=== PATIENT | male | born 1960 | race Two or more races ===

== ENCOUNTER 2019-02-21 21:05 | Inpatient (IN) | payer MEDICAID ==
[~2019-02-21] VITALS: Ht 165.1 cm; Wt 93.9 kg
--- NOTE | 2019-02-21 21:24 | NUR ---
TECH AT BEDSIDE FOR EKG
--- NOTE | 2019-02-21 21:26 | NUR ---
RADIOLOGY AT BEDSIDE FOR XRAY
[2019-02-21] MEDS ORDERED: IV NS 0.9% 1,000 ML BAG IV ONE (21:30)
[2019-02-21 21:43] LABS: BASOPHILS % (AUTO) 0.5 % (0.0-2.0); EOSINOPHILS % (AUTO) 0.7 % (0.0-6.0); HEMATOCRIT 43 % (39-51); HEMOGLOBIN 14.8 g/dL (13.5-17.5); LYMPHOCYTES # (AUTO) 1.6 /CMM (0.8-4.8); LYMPHOCYTES % (AUTO) 17.8 % (20.0-44.0); MEAN CORPUSCULAR HGB CONC 35 g/dl (31.0-36.0); MEAN CORPUSCULAR VOLUME 91 fL (80-96); MONOCYTES % (AUTO) 11.2 % (2.0-12.0); NEUTROPHILS # (AUTO) 6.2 /CMM (1.8-8.9); NEUTROPHILS % (AUTO) 69.8 % (43.0-81.0); PLATELET COUNT (AUTO) 218 /CMM (150-450); RED BLOOD CELL COUNT(AUTO) 4.66 MIL/uL (4.5-6.0); WHITE BLOOD COUNT (AUTO) 8.9 K/uL (4.3-11.0)
--- NOTE | 2019-02-21 21:44 | NUR ---
BLOOD DRAWN AND GIVEN TO LAB
[2019-02-21 21:54] LABS: CALCIUM, SERUM 8.9 mg/dL (8.5-10.1); CREATININE 0.9 mg/dL (0.6-1.3); POTASSIUM 4.2 mmol/L (3.5-5.1)
[2019-02-21 21:59] LABS: ALBUMIN 3.6 g/dL (3.4-5.0); BILIRUBIN,DIRECT 0.1 mg/dL (0.0-0.2); BILIRUBIN,TOTAL 0.7 mg/dL (0.2-1.0); TOTAL PROTEIN, SERUM 7.7 g/dL (6.4-8.2)
[2019-02-21] MEDS ORDERED: ACETAMINOPHEN 325 MG TABLET PO ONE (22:30)
--- NOTE | 2019-02-21 22:32 | NUR ---
URINE COLLECTED AND SENT TO LAB
[2019-02-21] MEDS ORDERED: ACETAMINOPHEN ES 500 MG TABLET ONE (22:34)
[2019-02-21 22:35] LABS: APPEARANCE,URINE Slightly Cloudy (CLEAR); BILIRUBIN,URINE SMALL (NEGATIVE); BLOOD, URINE Negative Ery/uL (NEGATIVE); COLOR,URINE Other (YELLOW); KETONES,URINE Trace (NEGATIVE); LEUKOCYTE ESTERASE ,URINE Trace (NEGATIVE); NITRITE, URINE Positive (NEGATIVE); PH,URINE 6.5 (5.0-8.0); PROTEIN,URINE 100 mg/dl (NEGATIVE); UGLUCOSE 100 MG/DL mg/dL (NEGATIVE)
[2019-02-21 23:03] LABS: OCCULT BLOOD STOOL POSITIVE (NEGATIVE)
[2019-02-21 23:04] LABS: BACTERIA,URINE Many /HPF (None Seen); RBC,URINE 0-2 /HPF (0-2); SQUAMOUS EPITHELIAL CELL,UR Rare /HPF (None Seen); WBC,URINE 21-50 /HPF (0-3)
[2019-02-21] MEDS ORDERED: ACETAMINOPHEN 325 MG TABLET PO PRN (23:30)
[2019-02-21] MEDS ORDERED: ONDANSETRON HCL/PF 4 MG/2 ML VIAL IVP PRN (23:30)
[2019-02-21] MEDS ORDERED: ZOLPIDEM TARTRATE 5 MG TABLET PO PRN (23:30)
[2019-02-21] MEDS ORDERED: HYDROCODONE/APAP 5/325MG 1 EACH TABLET PO PRN (23:30)
[2019-02-21] MEDS ORDERED: MAGNESIUM HYDROXIDE 30 ML UDC PO PRN (23:30)
[2019-02-21] MEDS ORDERED: Z GUARD REMEDY 2 OZ OINT TP PRN (23:30)
--- NOTE | 2019-02-22 00:11 | NUR ---
REPORT GIVEN TO CASANDRA MORA FOR SADIA
--- NOTE | 2019-02-22 00:30 | NUR ---
TEMP 99.2
[2019-02-22 00:45] VITALS: BP 127/82
--- NOTE | 2019-02-22 00:45 | NUR ---
RN OPEN NOTES RECEIVED PATIENT FROM ER VIA [facility] WITH FAMILY AT BEDSIDE. A/OX4. NO SIGNS OF DISTRESS OR DISCOMFORT. BREATHING EVEN AND UNLABORED. IV ACCESS IN L HAND, PATENT AND INTACT, NO SIGNS OF REDNESS OR INFILTRATION. ATTACHED PATIENT TO TELE MONITORING WITH SR 87 NOTED. NO SKIN ISSUES NOTED. BED IN LOW LOCKED POSITION WITH SIDE RAILS X2. CALL LIGHT WITHIN REACH. WILL CONTINUE TO MONITOR.
--- NOTE | 2019-02-22 01:25 | NUR ---
RN NOTES KESHIA AUTO TIRE RECAPPER AT PATIENT BEDSIDE.
[2019-02-22] MEDS ORDERED: CEFTRIAXONE 1 G VIAL ONE (01:50)
[2019-02-22] MEDS: IV NS 0.9% 1,000 ML IV PRN (01:50)
[2019-02-22] MEDS: CEFTRIAXONE 1 G in IV D5W 50 ML IV SCH ×2 (01:59→23:03)
[2019-02-22] MEDS ORDERED: BLOOD SUGAR DIAGNOSTIC 1 EACH STRIP IN SCH (02:00)
[2019-02-22] MEDS ORDERED: DEXTROSE 50%-WATER 50 ML DISP.SYRIN IV PRN (02:00)
[2019-02-22] MEDS ORDERED: LISINOPRIL (10MG) 10 MG TABLET PO SCH (02:00)
[2019-02-22 03:46] LABS: BASOPHILS % (AUTO) 0.3 % (0.0-2.0); EOSINOPHILS % (AUTO) 2.1 % (0.0-6.0); HEMATOCRIT 37 % (39-51); LYMPHOCYTES # (AUTO) 2.2 /CMM (0.8-4.8); LYMPHOCYTES % (AUTO) 28.5 % (20.0-44.0); MEAN CORPUSCULAR HGB CONC 35 g/dl (31.0-36.0); MEAN CORPUSCULAR VOLUME 91 fL (80-96); MONOCYTES # (AUTO) 1.2 /CMM (0.1-1.30); MONOCYTES % (AUTO) 15.1 % (2.0-12.0); NEUTROPHILS # (AUTO) 4.3 /CMM (1.8-8.9); PLATELET COUNT (AUTO) 175 /CMM (150-450); RED BLOOD CELL COUNT(AUTO) 4.08 MIL/uL (4.5-6.0); WHITE BLOOD COUNT (AUTO) 7.9 K/uL (4.3-11.0)
[2019-02-22 04:00] VITALS: BP 110/64
[2019-02-22 04:02] LABS: LYMPHOCYTES % (MANUAL) 22 % (16-48); MONOCYTES % (MANUAL) 13 % (0-11.0); NEUTROPHILS % (MANUAL) 63 (42-76)
[2019-02-22 04:07] LABS: CREATININE 0.9 mg/dL (0.6-1.3); MAGNESIUM 1.7 mg/dL (1.8-2.4); PHOSPHORUS 3.4 mg/dL (2.5-4.9); POTASSIUM 3.5 mmol/L (3.5-5.1)
[2019-02-22] MEDS: BLOOD SUGAR DIAGNOSTIC 1 EACH STRIP IN SCH ×4 (06:34→23:03)
[2019-02-22] MEDS: INSULIN REGULAR, HUMAN 100 UNIT/ML 3 ML VIAL SQ PRN ×4 (06:37→23:11)
--- NOTE | 2019-02-22 06:53 | NUR ---
RN CLOSING NOTES PATIENT RESTING IN BED, EASILY AROUSABLE. A/OX4. NO SIGNS OF DISTRESS OR DISCOMFORT. BREATHING EVEN AND UNLABORED. IV ACCESS IN L HAND WITH NS INFUSING, PATENT AND INTACT, NO SIGNS OF REDNESS OR INFILTRATION. ATTACHED TO TELE MONITORING WITH SR 78 NOTED. ALL NEEDS MET. NO SIGNIFICANT CHANGES THROUGH THE NIGHT. BED IN LOW LOCKED POSITION WITH SIDE RAILS X2. CALL LIGHT WITHIN REACH. WILL ENDORSE TO AM SHIFT FOR SADIA.
--- NOTE | 2019-02-22 08:11 | NUR ---
M/S RN NOTES PATIENT IN BED AWAKE, NO RESPIRATORY DISTRESS NOTED, NO C/O PAIN AT THIS TIME. SKIN WARM TO TOUCH. ON CALL ON, SR AT 100. IVF OF NS RUNNING AT 75ML/HR ON THE LEFT HAND, INTACT AND PATENT, NO REDNESS, NO INFILTRATION NOTED. PATIENT'S NEEDS ATTENDED. BED ON LOWEST LOCKED POSITION, CALL LIGHT WITHIN REACH. WILL CONTINUE TO MONITOR.
[2019-02-22 08:23] VITALS: BP 133/87
[2019-02-22] MEDS: LISINOPRIL (10MG) 10 MG TABLET PO SCH (08:44)
[2019-02-22] MEDS: Magnesium 1GM/D5W 100ML PREMIX 100 ML IV SCH ×2 (10:34→11:25)
[2019-02-22 11:13] LABS: IRON, SERUM 29 ug/dl (50-175); TOTAL IRON BINDING CAPACITY 197 ug/dl (250-450)
[2019-02-22 11:22] LABS: FERRITIN 347 ng/mL (8-388)
[2019-02-22] MEDS: PANTOPRAZOLE 40 MG TABLET.DR PO SCH ×2 (11:28→20:09)
[2019-02-22 12:59] LABS: ALBUMIN 2.9 g/dL (3.4-5.0); BILIRUBIN,DIRECT 0.1 mg/dL (0.0-0.2); BILIRUBIN,TOTAL 0.4 mg/dL (0.2-1.0); TOTAL PROTEIN, SERUM 6.4 g/dL (6.4-8.2)
[2019-02-22] MEDS ORDERED: PEG 3350/NA SULF,BICARB,CL/KCL 4,000 ML BOTTLE PO ONE (15:00)
[2019-02-22] MEDS ORDERED: MAGNESIUM CITRATE 296 ML BOTTLE PO ONE (15:00)
[2019-02-22] MEDS ORDERED: NA PHOS,M-B/NA PHOS,DI-BA 1 EA ENEMA RC PRN (15:00)
[2019-02-22 16:24] VITALS: BP 132/82
[2019-02-22 18:09] LABS: HEMOGLOBIN 13.8 g/dL (13.5-17.5)
[2019-02-22] MEDS: MORPHINE SULFATE INJ 2 MG/ML DISP.SYRIN IV PRN (19:04)
--- NOTE | 2019-02-22 19:35 | NUR ---
MS/RN OPENING NOTES PT RECEIVED AWAKE, A/OX3, FRENCH SPEAKING. FAMILY MEMBERS AT BEDSIDE. ON ROOM AIR, BREATHING EVEN AND UNLABORED. DENIES SOB, NOTES GENERALIZED PAIN 6/10 NOW POST ADMINISTRATION OF MORPHINE IV. IV TO LEFT HAND PATENT AND INTACT RUNNING IVF ORDERED. PER DAY SHIFT RN, PT HAD TEMP OF 102.5F. COOLING MEASURES IMPLEMENTED AND NOTIFIED SANTO RODRIGUEZ. SHE WILL INPUT ORDERS FOR TYLENOL. PT STARTED ON GOLYTELY FOR EDG/COLONOSCOPY TOMORROW. ENGRAVER JEWELRY AT BEDSIDE FOR US ABDOMEN. NO NEEDS EXPRESSED AT THIS TIME. HOB ELEVATED. BILAT. UPPER SIDE RAILS IN PLACE, BED IN LOW/LOCKED POSITION WITH CALL LIGHT IN REACH. WILL CONTINUE TO MONITOR
[2019-02-22 20:00] VITALS: BP 135/82
[2019-02-22] MEDS ORDERED: ACETAMINOPHEN 325 MG TABLET PO PRN (20:00)
[2019-02-23] VITALS (8 sets, daily range): BP systolic 125–132; BP diastolic 80–87
[2019-02-23] MEDS: IV NS 0.9% 1,000 ML IV PRN ×2 (01:05→18:32)
[2019-02-23 06:44] LABS: BASOPHILS % (AUTO) 0.2 % (0.0-2.0); HEMATOCRIT 37 % (39-51); LYMPHOCYTES # (AUTO) 1.6 /CMM (0.8-4.8); MEAN CORPUSCULAR HGB CONC 35 g/dl (31.0-36.0); MEAN CORPUSCULAR VOLUME 90 fL (80-96); MONOCYTES # (AUTO) 1.1 /CMM (0.1-1.30); MONOCYTES % (AUTO) 14.2 % (2.0-12.0); NEUTROPHILS # (AUTO) 4.9 /CMM (1.8-8.9); NEUTROPHILS % (AUTO) 63.6 % (43.0-81.0); PLATELET COUNT (AUTO) 205 /CMM (150-450); RED BLOOD CELL COUNT(AUTO) 4.16 MIL/uL (4.5-6.0); WHITE BLOOD COUNT (AUTO) 7.8 K/uL (4.3-11.0)
[2019-02-23] MEDS: BLOOD SUGAR DIAGNOSTIC 1 EACH STRIP IN SCH ×4 (06:47→21:42)
[2019-02-23] MEDS: INSULIN REGULAR, HUMAN 100 UNIT/ML 3 ML VIAL SQ PRN ×2 (06:50→21:44)
--- NOTE | 2019-02-23 06:53 | NUR ---
MS/RN CLOSING NOTES PT ASLEEP, RESPONSIVE TO NAME. REMAINS ON ROOM AIR, BREATHING EVEN AND UNLABORED. DENIES SOB AND PAIN AT THIS TIME. SON REMAINS AT BEDSIDE. ANDRZEJ RETURNED TO GPS. NPO POST MIDNIGHT FOR EGD/COLONOSCOPY TODAY AT 1230. PT IS AWARE. CONSENTS SIGNED AND PLACED IN THE CHART. CHECKLIST TO BE COMPLETED. HELD INSULIN DURING SHIFT DUE TO PT BEING NPO. IV TO LEFT HAND PATENT AND INTACT RUNNING IVF ORDERED. BED REMAINS IN LOW/LOCKED POSITION WITH CALL LIGHT IN REACH. BILAT. UPPER SIDE RAILS IN PLACE. WILL ENDORSE TO DAY SHIFT RN SADIA.
[2019-02-23 07:17] LABS: CALCIUM, SERUM 8.1 mg/dL (8.5-10.1); CREATININE 0.8 mg/dL (0.6-1.3); POTASSIUM 4.1 mmol/L (3.5-5.1)
--- NOTE | 2019-02-23 07:25 | NUR ---
MS/RN OPENING NOTE THE PATIENT IS RECEIVED IN BED. ALERT AND ORIENTED X4. IN ROOM AIR AND DENIES SOB. RESPIRATION REGULAR AND UNLABORED. DENIES PAIN. PATIENT NPO. LEFT HAND G 20 PATENT AND NORMAL SALINE INFUSING AT 75ML/RH AND NO S/S INFILTRATION NOTED. BED LOW AND LOCKED. SIDE RAILS UP X3. CALL LIGHT WITHIN REACH. WILL CONTINUE TO MONITOR.
[2019-02-23] MEDS: PANTOPRAZOLE 40 MG TABLET.DR PO SCH ×2 (09:00→21:34)
[2019-02-23] MEDS: LISINOPRIL (10MG) 10 MG TABLET PO SCH (09:00)
--- NOTE | 2019-02-23 12:30 | NUR ---
MS/RN NOTE 1200 DUE BLOOD SUGAR CHECK IS NOT DONE DUE TO PATIENT BEING IN OR.
[2019-02-23] MEDS ORDERED: MIDAZOLAM HCL 2 MG/2ML VIAL ONE (12:35)
--- NOTE | 2019-02-23 14:08 | NUR ---
MS/RN NOTE THE PATIENT IS BACK FROM OR. ALERT AND ORIENTED X4. IN ROOM AIR AND DENIES SOB. RESPIRATION REGULAR AND UNLABORED. DENIES PAIN. THE PATIENT IN NO APPARENT DISTRESS. ABDOMEN SOFT AND NON-DISTENDED. PATIENT VOIDED. NOTED CLEAR AND YELLOW COLOR URINE. BED LOW AND LOCKED. SIDE RAILS UP X3. CALL LIGHT WITHIN REACH. WILL CONTINUE TO MONITOR.
--- NOTE | 2019-02-23 19:02 | NUR ---
MS/RN NOTE PATIENT TOLERATED CLEAR LIQUID DIET WELL. DIET IS UPGRADED TO FULL LIQUID PER ORDER OF SANTO OLMEDO.
--- NOTE | 2019-02-23 19:02 | NUR ---
MS/RN NOTE THE PATIENT IS ALERT AND ORIENTED X4. IN ROOM AIR AND SATURATION IS AT 98%. DENIES SOB. RESPIRATION REGULAR AND UNLABORED. DENIES PAIN. THE PATIENT IS IN NO APPARENT DISTRESS. LEFT HAND G 20 PATENT AND NORMAL SALINE INFUSING AT 75ML/HR AND NO S/S INFILTRATION. BED LOW AND LOCKED. SIDE RAILS UP X3. CALL LIGHT WITHIN REACH. WILL ENDORSE TO MICROFILM OPERATOR.
--- NOTE | 2019-02-23 19:34 | NUR ---
RN MS OPENING NOTES RECEIVED PT IN BED, AWAKE ALERT ORIENTED, FAMILY AT BEDSIDE. BREATHING EVEN AND UNLABORED ON ROOM AIR. NO COMPLAIN OF CHEST PAIN OR DISCOMFORT AT THIS TIME. IV ACCESS ON THE L HAND G20 WITH NS @75ML/HR. BED IN LOWEST LOCKED POSITION, CALL LIGHT WITHIN REACH AT ALL TIMES, WILL CONTINUE TO MONITOR FREQUENTLY.
[2019-02-23] MEDS: MORPHINE SULFATE INJ 2 MG/ML DISP.SYRIN IV PRN (19:57)
[2019-02-23] MEDS: CEFTRIAXONE 1 G in IV D5W 50 ML IV SCH (23:14)
--- NOTE | 2019-02-24 06:26 | NUR ---
RN MS CLOSING NOTES PT REMAINS IN BED, AWAKE ALERT ORIENTED. BREATHING EVEN AND UNLABORED ON ROOM AIR. NO COMPLAIN OF PAIN OR DISCOMFORT AT THIS TIME. IV ACCESS ON THE L HAND G20 WITH NS @75ML/HR. BED IN LOWEST LOCKED POSITION, CALL LIGHT WITHIN REACH AT ALL TIMES, WILL ENDORSE TO DAY NURSE FOR SADIA
[2019-02-24] MEDS: BLOOD SUGAR DIAGNOSTIC 1 EACH STRIP IN SCH ×4 (06:37→22:05)
[2019-02-24] MEDS: INSULIN REGULAR, HUMAN 100 UNIT/ML 3 ML VIAL SQ PRN ×4 (06:37→22:23)
--- NOTE | 2019-02-24 07:28 | NUR ---
RN MS OPENING NOTES RECEIVED PT IN BED, ASLEEP. NO S/S OF DISTRESS, ON ROOM AIR. IV ACCESS ON THE L HAND G20 WITH NS @75ML/HR. BED IN LOWEST LOCKED POSITION, CALL LIGHT WITHIN REACH AT ALL TIMES, WILL CONTINUE TO MONITOR.
[2019-02-24 08:00] VITALS: BP 148/90
[2019-02-24] MEDS: PANTOPRAZOLE 40 MG TABLET.DR PO SCH ×2 (08:22→21:00)
[2019-02-24] MEDS: LISINOPRIL (10MG) 10 MG TABLET PO SCH (08:23)
--- NOTE | 2019-02-24 09:15 | NUR ---
RN NOTES PATIENT FOR CT ANGIO OF HEART WITH 3D IMAGE, PROCEDURE EXPLAINED TO PATIENT AND VERBALIZED UNDERSTANDING. PATIENT SIGNED THE CONSENT AND FILE ON CHART. WILL CONTINUE TO MONITOR.
[2019-02-24] MEDS ORDERED: IOHEXOL-350 100 ML VIAL IV ONE (09:40)
[2019-02-24] MEDS ORDERED: METOPROLOL TARTRATE INJ 5 MG/5 ML AMPUL ONE ×3 (09:41→10:36)
[2019-02-24] MEDS ORDERED: IV NS 0.9% 250 ML IV ONE (09:41)
[2019-02-24] MEDS ORDERED: CT SWABBABLE VALVE TRANS SET 1 EA INFUS.SET MC ONE (09:41)
--- NOTE | 2019-02-24 09:54 | NUR ---
RN NOTES PATIENT WAS PICKED UP JUST NOW FOR CT ANGIOGRAPHY OF HEART VIA WHEELCHAIR.
[2019-02-24] MEDS ORDERED: NITROGLYCERIN 0.4 MG/TAB BOTTLE SL ONE (10:00)
[2019-02-24] MEDS ORDERED: IV NS 0.9% 500 ML IV ONE (10:00)
[2019-02-24] MEDS ORDERED: METOPROLOL TARTRATE INJ 5 MG/5 ML AMPUL IVP ONE (10:00)
--- NOTE | 2019-02-24 10:07 | NUR ---
RN NOTES PATIENT TOLERATED FULL LIQUIDS DIET THIS MORNING WITH NO COMPLAINED OF ABDOMINAL PAIN, NAUSEA AND VOMITING. PATIENT ADVANCE DIET TO SOFT DIET PER MD ORDERED. WILL CONTINUE TO MONITOR.
--- NOTE | 2019-02-24 11:54 | NUR ---
RN NOTES PATIENT CAME BACK FROM CT ANGIO, ANOTHER IV ACCESS ON LEFT AC #18, INTACT AND PATENT.
[2019-02-24] MEDS: METOPROLOL TARTRATE 50 MG TABLET PO SCH ×2 (12:22→17:52)
[2019-02-24] MEDS ORDERED: SUCR1ORA4 PO (15:04)
[2019-02-24] MEDS ORDERED: CEPH-570 PO (15:04)
[2019-02-24] MEDS ORDERED: METF-440 PO (15:04)
[2019-02-24] MEDS ORDERED: PANT40TA2 PO (15:04)
[2019-02-24] MEDS ORDERED: LISI10TA59 PO (15:04)
[2019-02-24] MEDS ORDERED: METO50TA16 PO (15:04)
[2019-02-24 16:00] VITALS: BP 131/85
[2019-02-24] MEDS: SUCRALFATE 1 G/10 ML UDC GT SCH ×2 (18:01→22:00)
--- NOTE | 2019-02-24 18:21 | NUR ---
RN MS CLOSING NOTES PT REMAINS IN BED, AWAKE ALERT ORIENTED. BREATHING EVEN AND UNLABORED ON ROOM AIR. NO COMPLAIN OF PAIN OR DISCOMFORT AT THIS TIME. IV ACCESS ON THE LEFT HAND G20 AND LEFT AC G18 WITH NS @75ML/HR. BED IN LOWEST LOCKED POSITION, CALL LIGHT WITHIN REACH AT ALL TIMES, WILL ENDORSE TO SENIOR ELECTRICAL DESIGNER FOR SADIA
--- NOTE | 2019-02-24 19:42 | NUR ---
RN OPENING NOTES RECEIVED PATIENT AWAKE, IN BED. ALERT AND ORIENTED. NO SIGNS OF RESPIRATORY DISTRESS. DENIES SOB. DENIES PAIN OR DISCOMFORT AT THIS TIME. IV SITE: LEFT HAND G20 AND LEFT AC G18 INTACT AND PATENT. SAFETY PRECAUTIONS IMPLEMENTED; CALL LIGHT WITHIN REACH, BED LOW, BED LOCKED, HOB UP, SIDE RAILS UP X2. WILL CONTINUE TO MONITOR. PATIENT IS AWAITING D/C. AWAITING CONFIRMATION FROM [facility]. ALL D/C PAPERS SIGNED. AWAITING TO GIVE REPORT TO RN FROM [facility].
[2019-02-24 20:00] VITALS: BP 120/80
--- NOTE | 2019-02-24 22:42 | NUR ---
RN NOTES I GAVE REPORT TO CASANDRA JAIMES FROM [facility]. [facility] IS ACCEPTING THIS PATIENT. PATIENT IS GOING TO ROOM 1209, 2S[address]. CURRENT VITALS ARE TEMP: 99.0, BP-120/80, HR- 70, O2 SAT 96%, RESPIRATORY 18. SON IS CURRENTLY AT BEDSIDE AND WILL BE ACCOMPANYING PATIENT. WILL CONTINUE TO MONITOR PATIENT UNTIL PATIENT GET TRANSFERRED. PAPERWORK DONE AND SIGNED.
[2019-02-24] MEDS: CEFTRIAXONE 1 G in IV D5W 50 ML IV SCH (23:49)
[2019-02-25 00:15] VITALS: BP 122/87
[2019-02-25 00:20] VITALS: BP 122/87
[2019-02-25] MEDS: METOPROLOL TARTRATE 50 MG TABLET PO SCH (00:20)
--- NOTE | 2019-02-25 00:25 | NUR ---
RN NOTES PATIENT STILL AWAITING TRANSFER. ALL DUE MEDICATIONS AND NEEDS ATTENDED TO AT THIS TIME. WILL CONTINUE TO MONITOR PATIENT.
--- NOTE | 2019-02-25 01:27 | NUR ---
RN NOTES PATIENT WAS PICKED UP BY [facility]ANCE [facility] AT 0130. LAST VITAL SIGNS WERE: 138/76, PULSE 74, TEMP 98.1, RESPIRATORY 18, O2 SAT 98% ON RA. ALL PAPERWORK GIVEN AND SIGNED.
--- NOTE | 2019-02-25 01:28 | NUR ---
RN NOTES PATIENT LEFT IN STABLE CONDITION. SON ACCOMPANIED PATIENT VIA AMBULANCE. PATIENT IV SITES: L HAND #20, LAC #18 INTACT AND PATENT. NO COMPLAINTS OF PAIN.
== END 2019-02-25 01:28 | disposition short-term general hospital (02) | DRG 720 ==
LOC: ER 21:15 → TELE 23:12 → UNDOADMIN 02-22 00:05 → TELE 02-22 00:05 → MED 02-22 10:31
PROVIDERS: ADMIT Nurse Practitioner Acute Care; ATTEND Nurse Practitioner Acute Care
DX: A41.9 Sepsis, unspecified organism (principal); I21.4 Non-ST elevation (NSTEMI) myocardial infarction; E11.42 Type 2 diabetes mellitus with diabetic polyneuropathy; E83.42 Hypomagnesemia; D62 Acute posthemorrhagic anemia; E11.65 Type 2 diabetes mellitus with hyperglycemia; E87.1 Hypo-osmolality and hyponatremia; K92.2 Gastrointestinal hemorrhage, unspecified; N39.0 Urinary tract infection, site not specified; K44.9 Diaphragmatic hernia without obstruction or gangrene; K20.9 Esophagitis, unspecified; K59.09 Other constipation; T39.395A Adverse effect of other nonsteroidal anti-inflammatory drugs [NSAID], initial encounter; Y92.9 Unspecified place or not applicable; Z80.0 Family history of malignant neoplasm of digestive organs; E66.9 Obesity, unspecified; B96.20 Unspecified Escherichia coli [E. coli] as the cause of diseases classified elsewhere; K76.0 Fatty (change of) liver, not elsewhere classified; E86.1 Hypovolemia; I51.7 Cardiomegaly; Z68.34 Body mass index [BMI] 34.0-34.9, adult
CPT/HCPCS: 36415; 71045-TC; 75574; 76700-TC; 80048-TC; 80061-TC; 80076-TC; 81000-TC; 82272-TC; 82728-TC; 82962-TC; 83540-TC; 83605-TC; 83735-TC; 84100-TC; 84484-TC; 85025-TC; 85027-TC; 85730-TC; 86850-TC; 87040-TC; 87081-TC; 87086-TC; 87186-TC; 87400; 88305-TC; 88313-TC; 88342; 93307-TC; G0378; J0696; J1815; J2250; J2270; J2704; J3475; J3490; J7030; J7050; J7060; Q9967